=== PATIENT | male | born 1950 | race Caucasian/White ===

== ENCOUNTER → 2017-10-10 | Outpatient (CLI) | payer MEDICARE | LOC: M.ULTRA 12:48 | DX: I73.9 Peripheral vascular disease, unspecified (principal); E11.40 Type 2 diabetes mellitus with diabetic neuropathy, unspecified; M79.605 Pain in left leg; M79.604 Pain in right leg ==

== ENCOUNTER → 2019-02-17 | Outpatient (CLI) | payer OTHER ==
[~2019-02-17] MED LIST: ELIQUIS2.5 MG PO; LAMICTAL200 MG PO; LIPITOR40 MG PO; LISINOPRIL2.5 MG PO; METFORMIN HCL500 MG PO; NEURONTIN 300300 M1 PO; OXYCODONE HCL 55 MG PO; PERCOCET PO; PROZAC20 MG PO
[2019-02-18 18:09] LABS: HEPATITIS B SURFACE AG Negative (Negative)
== END ==
LOC: M.LAB 13:53
PROVIDERS: Internal Medicine Gastroenterology
DX: K70.30 Alcoholic cirrhosis of liver without ascites (principal)

== ENCOUNTER → 2019-08-22 | Outpatient (CLI) | payer OTHER | LOC: M.ULTRA 08-19 09:00 | DX: K74.60 Unspecified cirrhosis of liver (principal); K76.89 Other specified diseases of liver ==

== ENCOUNTER 2019-10-20 13:46 | Observation (INO) | payer OTHER ==
[~2019-10-20] VITALS: Ht 182.9 cm; Wt 86.2 kg
[~2019-10-20 13:46] MED LIST changes: -NEURONTIN 300300 M1 PO; +NEURONTIN 300M300 M2 PO
[2019-10-20 13:53] VITALS: BP 178/102
[2019-10-20] MEDS ORDERED: WELLBUTRIN SR100 MG PO (13:57)
[2019-10-20 14:15] LABS: ABSOLUTE BASOPHILS 0.1 thou/uL (0.0-0.2); ABSOLUTE EOSINOPHILS 0.2 thou/uL (0.0-0.7); ABSOLUTE LYMPHOCYTES 1.6 thou/uL (0.8-5.3); ABSOLUTE MONOCYTES 0.7 thou/uL (0.0-1.2); ABSOLUTE NEUTROPHILS 5.9 thou/uL (1.6-8.1); EOSINOPHILS 2.3 %; HEMOGLOBIN 14.2 gm/dL (14.0-18.0); LYMPHOCYTES 18.9 %; MCH 33.8 pg (26.0-34.0); MCHC 35.4 g/dL (28.0-37.0); MCV 95.6 fL (80.0-100.0); MONOCYTES 8.4 %; MPV 7.9 fl. (7.2-11.1); NUCLEATED RBCS 0 /100WBC; PLATELET COUNT* 197 thou/uL (150-400); POLYS 69.4 %; RBC 4.19 mil/uL (4.50-6.00); RDW-CV 13.9 % (10.5-14.5); WBC 8.6 thou/uL (4.0-11.0)
[2019-10-20 14:59] LABS: CALCIUM 8.3 mg/dL (8.5-10.1); CREATININE 0.9 mg/dL (0.6-1.3); POTASSIUM 4.2 mmol/L (3.5-5.1)
[2019-10-20 15:04] LABS: ALBUMIN 3.7 g/dL (3.4-5.0); TOTAL BILIRUBIN 0.6 mg/dL (<0.1-1.0); TOTAL PROTEIN 7.3 g/dL (6.4-8.2)
[2019-10-20 15:15] LABS: URINE BILIRUBIN NEGATIVE (Negative); URINE BLOOD NEGATIVE (Negative); URINE CLARITY CLEAR; URINE COLOR YELLOW; URINE GLUCOSE-RANDOM NEGATIVE (Negative); URINE KETONES NEGATIVE (Negative); URINE LEUKOCYTES-REFLEX NEGATIVE (Negative); URINE NITRITE-REFLEX NEGATIVE (Negative); URINE PROTEIN NEGATIVE (Negative); URINE SPECIFIC GRAVITY <= 1.005 (1.005-1.030); URINE UROBILINOGEN 0.2 E.U./dl (0.2-1.0)
--- NOTE | 2019-10-20 16:39 | EKG ---
[place] [address] ELECTROCARDIOGRAM REPORT Name: JOSELITO MENDOZA Room: [address]#: [id number] Admission: 10/20/19 Attend Phys: Jose Manuel Yan, Discharge: Date of : 54 Date of Service: 10/20/19 1355 Report #: [id number] THIS REPORT FOR: //name// [facility] ED Test Date: 2019-10-20 Test Time: 13:55:57 Pat Name: JOSELITO MENDOZA Department: Room: 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: LM : [id number] Requested By: Chyna Connell Order Number: [id number] MD: Jeff Augustin Measurements Intervals [place] Rate: 74 P: MA: 116 QRS: 18 QRSD: 92 T: QT: 414 QTc: 460 Interpretive Statements Atrial-paced rhythm Borderline T abnormalities, lateral leads Baseline wander in lead(s) V6 No previous ECG available for comparison Electronically Signed On 10-20-2019 16:37:15 CDT by Jeff Augustin [email or web address] <ELECTRONICALLY SIGNED> By: Jeff Augustin MD, FACC 10/20/19 1637 1355 1355 Jeff Augustin MD, [facility] /EPI
[2019-10-20 18:00] VITALS: BP 120/72
--- NOTE | 2019-10-20 18:07 | NUR ---
PT ORIENTED TO ROOM AND UNIT, BED LOW AND LOCKED, SIDE RAILS UP X3, CALL LIGHT IN REACH, TELE APPLIED. WILL CONTINUE TO ASSESS.
[2019-10-20 20:00] VITALS: BP 115/64
[2019-10-21] VITALS: BP 120/70
[2019-10-21 04:00] VITALS: BP 122/68
[2019-10-21 04:53] LABS: CHOLESTEROL 92 mg/dL (<200); HDL CHOLESTEROL 35 mg/dL (>40); LDL CHOLESTEROL 30 mg/dL (<100); TC:HDL 2.6 Ratio (Not establshd); TRIGLYCERIDE 135 mg/dL (<150); VLDL 27 mg/dL (<40)
[2019-10-21 04:54] LABS: SERUM ASSESSMENT Clear
--- NOTE | 2019-10-21 05:51 | NUR ---
PATIENT SLEPT MOST OF THE NIGHT. PATIENT DID WAKE UP A LITTLE SWEATY ABOUT MIDNIGHT BUT STATED IT WAS NOT BAD THE NIGHT BEFORE WHEN HE WAS AT HOME. VITAL SIGNS WERE STABLE AT THAT TIME AND HAVE REMAINED STABLE CHARTED. PATIENT REMAINS APACED ON MONITOR. WILL CONTINUE TO MONITOR.
[2019-10-21 08:00] VITALS: BP 127/76
[2019-10-21] MEDS ORDERED: ASA81BEC PO (10:06)
[2019-10-21 12:04] VITALS: BP 127/76
--- NOTE | 2019-10-21 12:25 | NUR ---
PER RN, PT HAS BEEN CLEARED BY NEURO FOR PO INTAKE. RN HAD NO CONCERNS DURING MEALS OR WITH MEDICATIONS. ST DOES NOT RECOMMEND A CLINICAL BEDSIDE SWALLOW EVALUATION AT THIS TIME.
--- NOTE | 2019-10-21 12:56 | 2DMMODE ---
[place] [address] 2 D/M-MODE ECHOCARDIOGRAM Name: REJIJANISJOSELITO A Room: [address] MAlecRAlec#: [id number] Admission: 10/20/19 Attend Phys: Jose Manuel Yan, Discharge: Date of : 54 Date of Service: 10/21/19 1254 Report #: [id number] THIS REPORT FOR: cc: Mely Green Catherine FNP Liston, Michael J. MD [facility] ~ APPROVED REPORT Study performed: 10/21/2019 10:38:06 EXAM: Comprehensive 2D, Doppler, and color-flow Echocardiogram Patient Location: In-Patient Room #: 228 Status: routine BSA: 2.08 HR: 63 bpm BP: 127/76 mmHg Rhythm: NSR Other Information Study Quality: Good Indications CVA/TIA Echo Enhancing Agent Indication: Rule out Shunt Agent(s) / Amount(s) Used: Agitated Saline 10 cc 2D Dimensions IVSd: 10.00 (7-11mm) LVOT Diam: 23.31 (18-24mm) LVDd: 52.48 mm PWd: 7.96 (7-11mm) Ascending Ao: 37.06 (22-36mm) LVDs: 36.77 (25-40mm) Aortic Root: 34.83 mm Volumes Left Atrial Volume (Systole) LA ESV Index: 28.90 mL/m2 Aortic Valve AoV Peak Lonnie.: 1.28 m/s AO Peak Gr.: 6.59 mmHg LVOT Max P.93 mmHg AO Mean Gr.: 3.20 mmHg LVOT Mean P.37 [place] [address] 2 D/M-MODE ECHOCARDIOGRAM Name: JOSELITO MENDOZA Room: [address] M.RAlec#: [id number] Admission: 10/20/19 Attend Phys: Jose Manuel Yan, Discharge: Date of : 54 Date of Service: 10/21/19 1254 Report #: [id number] LVOT Max V: 0.86 m/s AO V2 VTI: 26.85 cm LVOT Mean V: 0.53 m/s ARAVIND (VTI): 3.12 cm2 LVOT V1 VTI: 19.66 cm Mitral Valve E/A Ratio: 1.12 MV Decel. Time: 192.69 ms MV E Max Lonnie.: 0.78 m/s MV PHT: 55.88 ms MVA (PHT): 3.94 cm2 TDI E/Lateral E': 7.09 E/Medial E': 6.50 Medial E' Lonnie.: 0.12 m/s Lateral E' Lonnie.: 0.11 m/s Pulmonary Valve PV Peak Lonnie.: 0.73 m/s PV Peak Gr.: 2.12 mmHg Tricuspid Valve RAP Estimate: 5.00 mmHg TR Peak Gr.: 19.29 mmHg RVSP: 24.00 mmHg PA Pressure: 24.00 mmHg Left Ventricle The left ventricle is normal size. There is normal LV segmental wall motion. There is normal left ventricular wall thickness. Left ventricular systolic function is normal. LVEF is 55-60%. Transmitral Doppler flow pattern suggests impaired LV relaxation. Right Ventricle The right ventricle is normal size. The right ventricular systolic function is normal. Pacemaker lead is present in the right ventricle. Atria Left atrium is mildly dilated. The interatrial septum is intact with no evidence for an atrial septal defect. The right atrium size is normal. Aortic Valve The aortic valve is normal in structure. No aortic regurgitation is present. There is no aortic valvular stenosis. Mitral Valve The mitral valve is normal in structure. Mild mitral regurgitation. No evidence [place] [address] 2 D/M-MODE ECHOCARDIOGRAM Name: JOSELITO MENDOZA Room: [address] M.R.#: [id number] Admission: 10/20/19 Attend Phys: Jose Manuel Yan, Discharge: Date of : 54 Date of Service: 10/21/19 1254 Report #: [id number] Tricuspid Valve The tricuspid valve is normal in structure. Trace tricuspid regurgitation. No pulmonary hypertension. Pulmonic Valve The pulmonary valve is normal in structure. There is no pulmonic valvular regurgitation. Great Vessels The aortic root is normal in size. IVC is normal in size and collapses >50% with inspiration. Pericardium There is no pericardial effusion. <Conclusion> The left ventricle is normal size. There is normal left ventricular wall thickness. Left ventricular systolic function is normal. LVEF is 55-60%. Transmitral Doppler flow pattern suggests impaired LV relaxation. Pacemaker lead is present in the right ventricle. Left atrium is mildly dilated. The interatrial septum is intact with no evidence for an atrial septal defect. Mild mitral regurgitation. Trace tricuspid regurgitation. No pulmonary hypertension. IVC is normal in size and collapses >50% with inspiration. <ELECTRONICALLY SIGNED> By: Jeff Augustin MD, FACC 10/21/19 1254 1254 1254 Jeff Augustin MD, FACC /INF
--- NOTE | 2019-10-21 14:35 | NUR ---
CM attempted to call into Pt's room x2 with no answer. Cm attempted to contact Pt's , on the shared phone number that is in Pt's chart, no answer. CM will continue to attempt to reach. Pt may be ready to dc later today. Following.
[2019-10-21 15:36] VITALS: BP 127/76
[2019-10-21 16:00] VITALS: BP 119/68
--- NOTE | 2019-10-21 17:11 | NUR ---
VSS, A&OX4, APACED ON TELE, ROOM AIR, UP AD NYA, NPO MOST OF THE DAY FOR GASTRIC EMPTY STUDY, HOURLY ROUNDING PERFORMED, POSSESSIONS AND CALL LIGHT WITHIN REACH. REC DISCHARGE ORDERS, REVIEWED WITH PATIENT
[2019-10-22 02:07] LABS: GLYCOHEMOGLOBIN (HGB A1C) 5.8 % (4.8-5.6)
--- NOTE | 2019-10-22 08:51 | NUR ---
PLEASE NOTE PT WAS DISCHARGED FROM HOSPITAL BEFORE P.T. EVAL AND TREAT COULD BE COMPLETED.
== END 2019-10-21 18:10 | disposition home or self-care (01) ==
LOC: M.ERS 13:46 → M.TBA-ER 15:41 → M.2W 15:41
PROVIDERS: Physician Assistant; ADMIT Internal Medicine
DX: G45.3 Amaurosis fugax (principal); I16.1 Hypertensive emergency; R55 Syncope and collapse; E11.9 Type 2 diabetes mellitus without complications; K74.60 Unspecified cirrhosis of liver; F17.290 Nicotine dependence, other tobacco product, uncomplicated; Z95.0 Presence of cardiac pacemaker

== ENCOUNTER → 2020-02-03 | Outpatient (CLI) | payer OTHER ==
[~2020-02-03] MED LIST changes: +ASA81BEC PO; +WELLBUTRIN SR100 MG PO
== END ==
LOC: M.LAB 09:34
PROVIDERS: ATTEND Internal Medicine Gastroenterology
DX: Z01.812 Encounter for preprocedural laboratory examination (principal); Z20.828 Contact with and (suspected) exposure to other viral communicable diseases; Z85.038 Personal history of other malignant neoplasm of large intestine